=== PATIENT | female | born 1985 | race Two or more races ===

== ENCOUNTER 2018-07-31 12:13 | Emergency (ER) | payer MEDICAID ==
[~2018-07-31] VITALS: Ht 167.6 cm; Wt 88.5 kg
[2018-07-31 12:56] LABS: BASOPHILS % (AUTO) 0.6 % (0.0-2.0); EOSINOPHILS % (AUTO) 1.4 % (0.0-6.0); HEMATOCRIT 37 % (33-45); HEMOGLOBIN 12.6 g/dL (11.5-14.8); LYMPHOCYTES # (AUTO) 1.3 /CMM (0.8-4.8); LYMPHOCYTES % (AUTO) 23.9 % (20.0-44.0); MEAN CORPUSCULAR HGB CONC 34 g/dl (31.0-36.0); MEAN CORPUSCULAR VOLUME 83 fL (82-100); MONOCYTES # (AUTO) 0.5 /CMM (0.1-1.30); NEUTROPHILS # (AUTO) 3.5 /CMM (1.8-8.9); NEUTROPHILS % (AUTO) 65.1 % (43.0-81.0); PLATELET COUNT (AUTO) 320 /CMM (150-450); RED BLOOD CELL COUNT(AUTO) 4.47 MIL/uL (4.0-5.2); WHITE BLOOD COUNT (AUTO) 5.4 K/uL (4.3-11.0)
[2018-07-31 14:00] VITALS: BP 124/65
--- NOTE | 2018-07-31 14:09 | NUR ---
Patient discharged to home in stable condition. Written and verbal after care instructions given. Patient verbalizes understanding of instruction.
== END 2018-07-31 14:09 | disposition home or self-care (01) ==
LOC: ER 12:13
DX: Z32.01 Encounter for pregnancy test, result positive (principal); Z98.890 Other specified postprocedural states
CPT/HCPCS: 36415; 76856-TC; 84702-TC; 85025-TC; 86850-TC

== ENCOUNTER → 2018-07-31 | Day surgery (SDC) | payer MEDICAID ==
[~2018-07-31] MED LIST: HYDROMORPHONE INJ 2 MG/ML DISP.SYRIN ONE; MIDAZOLAM HCL 2 MG/2ML VIAL ONE; ROCURONIUM BROMIDE 50 MG/5 ML ONE
== END | disposition home or self-care (01) ==
LOC: DS 08:54
PROVIDERS: ATTEND Specialist
DX: M19.012 Primary osteoarthritis, left shoulder (principal); Z53.9 Procedure and treatment not carried out, unspecified reason; M19.90 Unspecified osteoarthritis, unspecified site; Z98.890 Other specified postprocedural states
CPT/HCPCS: 36415; 84702-TC; 84703-TC; J1170; J2250

== ENCOUNTER 2018-08-23 05:44 | Day surgery (SDC) | payer MEDICAID ==
[2018-08-23] MEDS ORDERED: EPINEPHRINE (1:1000) 1 MG/ML AMPUL ONE (06:26)
[2018-08-23] MEDS ORDERED: SCOPOLAMINE HBR 1 EA PATCH.TD72 TD ONE (07:03)
[2018-08-23] MEDS ORDERED: MIDAZOLAM HCL 2 MG/2ML VIAL ONE (07:03)
[2018-08-23] MEDS ORDERED: FENTANYL PF 100MCG/2ML AMPUL ONE (07:04)
[2018-08-23] MEDS ORDERED: BUPIVACAINE 0.5 % PF 150 MG/30 ML VIAL ONE (07:06)
[2018-08-23] MEDS ORDERED: methylPREDNISolone ACETATE 80 MG/ML VIAL ONE (07:06)
[2018-08-23] MEDS ORDERED: HYDROMORPHONE INJ 2 MG/ML DISP.SYRIN ONE (07:58)
[2018-08-23] MEDS ORDERED: KETOROLAC TROMETHAMINE INJ 30 MG/ML VIAL ONE (08:18)
== END 2018-08-23 09:30 | disposition home or self-care (01) ==
LOC: DS 05:44
PROVIDERS: ATTEND Specialist
DX: M19.212 Secondary osteoarthritis, left shoulder (principal); M24.012 Loose body in left shoulder; M65.812 Other synovitis and tenosynovitis, left shoulder; Z98.890 Other specified postprocedural states; Z79.899 Other long term (current) drug therapy; Z83.3 Family history of diabetes mellitus
CPT/HCPCS: 20610; 29821; J0171; J1040; J1170; J1885; J2250; J3010; J3490; 88304-TC; 88311-TC; A4217; A4565; A6253; A6402; J0690; J1100; J2704

== ENCOUNTER 2019-11-14 09:03 | Outpatient (CLI) | payer MEDICAID | END 2019-11-14 23:59 | disposition home or self-care (01) | LOC: LAB 09:03 | PROVIDERS: ATTEND Specialist | DX: Z01.812 Encounter for preprocedural laboratory examination (principal); Z11.59 Encounter for screening for other viral diseases ==

== ENCOUNTER 2023-03-07 09:29 | Inpatient (IN) | payer MEDICAID ==
[~2023-03-07] VITALS: Ht 167.6 cm; Wt 99.8 kg
[2023-03-07 10:31] LABS: PREGNANCY TEST URINE QUAL NEGATIVE (NEGATIVE)
[2023-03-07] MEDS ORDERED: POLYMYXIN B SULFATE 500,000 UNITS ONE (11:19)
[2023-03-07] MEDS ORDERED: BUPIVACAINE 0.5 % PF 150 MG/30 ML VIAL ONE ×2 (11:20→13:05)
[2023-03-07] MEDS ORDERED: MIDAZOLAM HCL 2 MG/2ML VIAL ONE (13:04)
[2023-03-07] MEDS ORDERED: KETOROLAC TROMETHAMINE INJ 60 MG/2 ML VIAL IM ONE (13:04)
[2023-03-07] MEDS ORDERED: TRANEXAMIC ACID 1,000 MG/10 ML VIAL ONE ×3 (13:04→15:03)
[2023-03-07] MEDS ORDERED: FENTANYL PF 250MCG/5ML AMPUL ONE (13:04)
[2023-03-07] MEDS ORDERED: FAMOTIDINE/PF INJ 20 MG/2 ML VIAL IV ONE (13:05)
[2023-03-07] MEDS ORDERED: ROCURONIUM BROMIDE 50 MG/5 ML ONE (13:05)
[2023-03-07] MEDS ORDERED: ACETAMINOPHEN 325 MG TABLET ONE (13:24)
[2023-03-07] MEDS ORDERED: CEFAZOLIN 2 GM ONE (13:31)
[2023-03-07 16:30] VITALS: BP 112/57; TEMP 97.7; O2SAT 96
[2023-03-07] MEDS ORDERED: oxyCODONE/APAP (5/325 MG) 1 UDTAB TABLET PO PRN (16:30)
[2023-03-07 16:45] VITALS: BP 123/79; TEMP 97.6; O2SAT 96
[2023-03-07 17:00] VITALS: BP 119/75; TEMP 97.8; O2SAT 96
[2023-03-07 17:15] VITALS: BP 118/75; TEMP 97.8; O2SAT 96
[2023-03-07 17:30] VITALS: BP 123/76; TEMP 97.9; O2SAT 96
[2023-03-07] MEDS ORDERED: Z GUARD REMEDY 4 OZ OINT TP PRN (19:00)
[2023-03-07] MEDS ORDERED: MAG HYDROX/AL HYDROX/SIMETH 30 ML UDC PO PRN (19:00)
[2023-03-07] MEDS ORDERED: ACETAMINOPHEN 325 MG TABLET PO PRN (19:00)
[2023-03-07] MEDS ORDERED: ZOLPIDEM TARTRATE 5 MG TABLET PO PRN (19:00)
[2023-03-07] MEDS ORDERED: ONDANSETRON HCL/PF 4 MG/2 ML VIAL IVP PRN (19:00)
[2023-03-07] MEDS ORDERED: MORPHINE SULFATE INJ 2 MG/ML DISP.SYRIN IV PRN (19:00)
[2023-03-07] MEDS ORDERED: MAGNESIUM HYDROXIDE 30 ML UDC PO PRN (19:00)
[2023-03-07 20:00] VITALS: BP_SYST 112; BP_SYST 117; BP_DIAS 70; BP_DIAS 73; TEMP 97.3; TEMP 98.4; O2SAT 93; O2SAT 96
[2023-03-08 05:52] LABS: BASOPHILS % (AUTO) 0.6 % (0.0-2.0); EOSINOPHILS % (AUTO) 0.1 % (0.0-6.0); HEMATOCRIT 35 % (33-45); HEMOGLOBIN 11.6 g/dL (11.5-14.8); LYMPHOCYTES # (AUTO) 0.6 K/uL (0.8-4.8); LYMPHOCYTES % (AUTO) 8.6 % (20.0-44.0); MEAN CORPUSCULAR HEMOGLOBIN 28 PG (26.0-33.0); MEAN CORPUSCULAR HGB CONC 33 g/dl (31.0-36.0); MEAN CORPUSCULAR VOLUME 84 fL (82-100); MONOCYTES # (AUTO) 0.3 K/uL (0.1-1.30); MONOCYTES % (AUTO) 4.9 % (2.0-12.0); NEUTROPHILS # (AUTO) 5.5 K/uL (1.8-8.9); NEUTROPHILS % (AUTO) 85.8 % (43.0-81.0); PLATELET COUNT (AUTO) 261 K/uL (150-450); RED BLOOD CELL COUNT(AUTO) 4.16 MIL/uL (4.0-5.2); RED CELL DISTRIBUTION WIDTH 12.7 % (11.5-15.0); WHITE BLOOD COUNT (AUTO) 6.5 K/uL (4.3-11.0)
[2023-03-08 06:09] LABS: CALCIUM, SERUM 8.6 mg/dL (8.5-10.1); CREATININE 0.7 mg/dL (0.6-1.3); MAGNESIUM 2.3 mg/dL (1.8-2.4); PHOSPHORUS 3.6 mg/dL (2.5-4.9)
[2023-03-08 07:30] VITALS: BP 115/65; TEMP 98.8; O2SAT 97
[2023-03-08] MEDS ORDERED: INFLUENZA VACCINE 2023-24 0.5 ML DISP.SYRIN IM ONE (11:30)
== END 2023-03-08 13:30 | disposition home or self-care (01) | DRG 322 ==
LOC: DS 09:29 → MED 14:28
PROVIDERS: ADMIT Internal Medicine; ATTEND Internal Medicine
PROC: 0RRK00Z Replacement of Left Shoulder Joint with Reverse Ball and Socket Synthetic Substitute, Open Approach (ICD-10-PCS; principal; 2023-03-07)
PROC: 0LS40ZZ Reposition Left Upper Arm Tendon, Open Approach (ICD-10-PCS; 2023-03-07)
PROC: 0RHK04Z Insertion of Internal Fixation Device into Left Shoulder Joint, Open Approach (ICD-10-PCS; 2023-03-07)
DX: M06.812 Other specified rheumatoid arthritis, left shoulder (principal); E66.9 Obesity, unspecified; M12.9 Arthropathy, unspecified; M85.60 Other cyst of bone, unspecified site; Z96.649 Presence of unspecified artificial hip joint; Z68.35 Body mass index [BMI] 35.0-35.9, adult
CPT/HCPCS: 36415; 80048-TC; 83735-TC; 84100-TC; 84703-TC; 85025-TC; G0378; J0690; J1100; J1885; J2250; J2270; J2405; J2704; J2765; J3010; J3490; J7030; J7040; Q2036